=== PATIENT | female | born 1980 | race Caucasian/White ===

== ENCOUNTER → 2016-09-23 | Day surgery (SDC) | payer OTHER ==
[~2016-09-23] VITALS: Ht 162.6 cm; Wt 68.0 kg
[~2016-09-23] MED LIST: DOCUSATE SODIU100 MG PO; FERROUS SULFAT325 M1 PO; GLYBURIDE2.5 MG PO; PERCOCET 325 MG1 TA2 PO
--- NOTE | 2016-09-29 18:32 | Operative Report ---
Operative/Inv Procedure Report Surgery Date: 09/23/16 Name of Procedure: D&C hysteroscopy Pre-Operative Diagnosis: Irregular menses Post-Operative Diagnosis: Same Estimated Blood Loss: scant Surgeon/Insurance Verification Clerk: FELICIA ORTA MD Anesthesia: local monitored anesthesi Operative/Procedure Note Note: The patient was brought to the operating room placed on the OR table in the dorsal supine position. She was given adequate anesthesia and repositioned into a modified dorsal lithotomy. She was prepped and draped in usual sterile fashion. A weighted speculum was inserted into the vagina and with a Man retractor a single-toothed tenaculum was attached to the anterior lip of the cervix. The cervix was then injected with 1% lidocaine with epinephrine 2 ml in each quadrant. An endocervical curettage was then performed revealing a moderate amount of tissue. The uterus was sounded to 8 cm anteverted. The cervix was then serially dilated to accommodate the hysteroscope [facility] the hysteroscope was placed in the fundus of the uterus and a saline infusion was activated. There were no polyps or fibroids noted however there were shaggy endometrium throughout. The hysteroscope was then removed. The cervix was further dilated. Sharp curettage followed revealing a moderate amount of tissue. The incision was removed hemostasis was verified and the patient was awakened and sent to recovery in good condition. All needle, sponge, and instrument counts were correct at the end of the procedure 2.
== END ==
LOC: STS 01:37
DX: N92.6 Irregular menstruation, unspecified (principal)
CPT/HCPCS: 81025; 88305; J2250